=== PATIENT | male | born 1940 | race American Indian/Alaskan Native ===

== ENCOUNTER 2017-07-22 08:22 | Day surgery (SDC) | payer MEDICARE ==
[2017-05-03 09:06] VITALS: BMI 26.8
[2017-07-22] MEDS ORDERED: Propofol 10 mg/ml Inj (20 ML) ONE (10:46)
[2017-07-22] MEDS ORDERED: Midazolam 2 MG/2 ML VIAL ONE ×2 (10:47)
[2017-07-22] MEDS ORDERED: Absorbable Gelatin Sponge Size 12-7 ONE (10:54)
--- NOTE | 2017-07-22 11:16 | CP.SDSHP ---
Same Day Surgery H & P - History Proposed Procedure: US guided left renal biopsy - Allergies Allergies: Allergies No Known Allergies Allergy (Verified 07/09/14 10:34) - Physical Exam Mental Status: Alert & Oriented x3 Neuro: WNL Heart: WNL - Impression Impression: Pt with proteinuria referred for renal biopsy. Plan US guided left renal biospy. Informed consent obtained and risk of bleeding discussed with the patient. Pt. Evaluated Today:Candidate for Anesthesia & Procedure: Yes (ASA 2 Malampati 3) - Date & Time Date: 07/22/17 Time: 10:35 Short Stay Discharge - Short Stay Discharge Admitting Diagnosis/Reason for Visit: PROTEIN UREA
--- NOTE | 2017-07-22 11:19 | PCM.SURG1 ---
Surgeon's Initial Post Op Note - Surgeon's Notes Surgeon: Pk Mcmahan MD Casting Tester: NONE Type of Anesthesia: IV Sedation Pre-Operative Diagnosis: Proteinuria Operative Findings: US showed an unremarkable left kidney Post-Operative Diagnosis: Proteinuria Operation Performed: US guided left renal biopsy, Five 18-g core obtained. Biopsy tract embolized with gelfoam. Specimen/Specimens Removed: 18 gauge core x 5 Estimated Blood Loss: EBL {In ML}: 1 Blood Products Given: N/A Drains Used: No Drains Post-Op Condition: Fair Date of Surgery/Procedure: 07/22/17 Time of Surgery/Procedure: 11:15
== END 2017-07-22 14:00 | disposition home or self-care (01) ==
LOC: C.SPRAD 08:22
PROVIDERS: ATTEND Radiology Vascular & Interventional Radiology
DX: N18.4 Chronic kidney disease, stage 4 (severe) (principal); E11.21 Type 2 diabetes mellitus with diabetic nephropathy; Z79.4 Long term (current) use of insulin
CPT/HCPCS: 50200; 88305; J2250; J3010